=== PATIENT | female | born 1950 | race Two or more races ===

== ENCOUNTER → 2024-12-13 | Outpatient (CLI) | payer MEDICARE, MEDICAID, SELFPAY ==
--- NOTE | 2024-12-13 09:00 | XR_ITS ---
Examination: Abdomen sonogram, complete Date and time of exam: December 13, thousand 25, 0912 hours INDICATIONS: Pelvic pain beginning one month ago, abdominal pain beginning one month ago. Technique: Multiple real-time grayscale transabdominal sonographic images of the abdomen have been obtained. Findings: Absent gallbladder Normal common bile duct 0.3 cm Pancreatic head 2.0 cm Aorta not enlarged. Liver 16.5 cm no liver lesions Normal hepatopedal portal venous flow Patent IVC Right kidney 10.0 cm renal cortex 1.4 cm Left kidney 10.3 cm cortex 1.0 cm No hydronephrosis Spleen 11.7 cm IMPRESSION: Normal common bile duct. Mild hepatomegaly
--- NOTE | 2024-12-13 09:30 | XR_ITS ---
Examination: Pelvic ultrasound, transabdominal, complete Technique: Transabdominal ultrasound of the pelvis performed using grayscale imaging Date and time of exam: December 13 thousand 25, 0909 hours INDICATIONS: Pelvic pain beginning one year ago FINDINGS: Absent uterus, absent ovaries IMPRESSION: Absent uterus, absent ovaries
== END | disposition home or self-care (01) ==
PROVIDERS: PCP Student in an Organized Health Care Education/Training Program; Referring Provider Student in an Organized Health Care Education/Training Program; Visit Provider Student in an Organized Health Care Education/Training Program
DX: R10.2 Pelvic and perineal pain (principal); R10.84 Generalized abdominal pain; Z90.710 Acquired absence of both cervix and uterus; Z90.722 Acquired absence of ovaries, bilateral
CPT/HCPCS: 76700; 76856